=== PATIENT | male | born 1975 | race Caucasian/White ===

== ENCOUNTER 2019-04-09 21:53 | Inpatient (IN) | payer OTHER, SELFPAY ==
--- NOTE | 2019-04-09 19:00 | ECG_ITS ---
Measurements Intervals [place] Rate: 82 P: 42 UT: 154 QRS: 215 QRSD: 186 T: 71 QT: 478 QTc: 560 Interpretive Statements SINUS RHYTHM RIGHT AXIS DEVIATION LEFT BUNDLE BRANCH BLOCK BASELINE ARTIFACT- I, AVR ABNORMAL ECG Electronically Signed On 04-10-2019 9:39:30 HEAVY EQUIPMENT OPERATOR/PAVER by Yassine GATES
[2019-04-09 21:58] VITALS: BP 174/100; PULSE 56; RESP 11; TEMP 37; O2SAT 99
--- NOTE | 2019-04-09 22:02 | ED.OVERDOSE ---
HPI - Overdose General Chief Complaint: Overdose Stated Complaint: SI Time Seen by Provider: 04/09/19 21:58 Source: patient and RN notes reviewed Mode of arrival: ambulatory Limitations: no limitations History of Present Illness HPI Narrative: A 43 y/o male presents to the ED with c/o overdose. Pt states that he took 58 Metoprolol 25mg pills tonight trying to kill himself at 1900. He is normally prescribed Metoprolol 25mg x1 BID. Pt reports nausea, but denies CP, SOB, and ABD pain. He has a PMHx of suicide attempt and has overdosed on Aspirin and impaled himself with an eight inch blade previously. Pt is diagnosed with PTSD and depression. complaint: intentional overdose Onset (ago): hour(s) (3) Time: 19:00 Substance Ingested Metoprolol: Number of Pills Ingested: 58 Time of Ingestion: 19:00 Intent: suicide attempt Associated symptoms: other (Nausea) Related Data Home Medications Medication Instructions Recorded Confirmed Unable to Obtain Home Medications 04/09/19 04/09/19 Allergies Allergy/AdvReac Type Severity Reaction Status Date / Time No Known Allergies Allergy Mild Verified 04/09/19 22:35 Review of Systems Review of Systems: All systems reviewed & are unremarkable except as noted in HPI and below Cardiovascular: Cardiovascular: Denies chest pain Respiratory: Respiratory: Denies dyspnea Gastrointestinal: Gastrointestinal: Denies abdominal pain and Reports nausea PMFSH Past Medical History Medical History Depression (Acute) HTN (hypertension) (Acute) Hyperlipidemia (Acute) PTSD (post-traumatic stress disorder) (Acute) Suicide attempt (Acute) Surgical History Surgical History History of open reduction and internal fixation (ORIF) procedure (Acute) History of tooth extraction (Acute) Social History Social History Smoking status: Never smoker Alcohol intake: never Substance use: never Gender identity (if verbalized by the patient): Male Exam Const: General: cooperative, no acute distress and alert Nutritional Appearance: well nourished Orientation/consciousness: oriented x3 Limitations: no limitations HENMT: Mouth: Yes lip normal and Yes moist mucous membranes Eyes: Conjunctivae: conjunctivae normal Pupils: PERRL Resp: Effort & Inspection: normal respiratory effort Auscultation: clear to auscultation bilaterally Cardio: Rate: bradycardic Rhythm: regular rhythm Peripheral pulses: dorsalis pedis pulses present bilateral 2+ GI: Palpation (GI): Yes soft and No tender Auscultation: normal bowel sounds Skin: General skin exam: normal color Neuro: General: oriented x3 Cognition (Neuro): normal cognition Speech: normal speech Extrem: General: normal to inspection, full ROM and pedal edema bilaterally Psych: Mental Status: mental status grossly normal Affect: normal affect Attitude: cooperative Course Course Emergency Course: Patient presents to the emergency department with report of beta-master overdose 3 hours prior to arrival. Patient with heart rate in the mid 50s on arrival. Patient hypertensive with blood pressures ranging 150s to 170s systolic. Patient did have slight drift downward and his heart rate to the mid 40s. Patient given 1 mg of atropine and 2 mg of glucagon with improvement in heart rate to 70. Patient did not have any significant drop in blood pressure with his downtrending bradycardia. Patient without any other coingestions reported. Drug screen is positive for benzodiazepines and marijuana, other drug levels are unremarkable and not positive. Patient admitted to ICU for close monitoring and care. Patient will require psychiatric evaluation once he is medically stable. Consultations Consultation #1: Disscussed case with Dr. Casillas. He accepts admission. Date:
--- NOTE | 2019-04-09 22:10 | PC.NURSE ---
Spoke with Verito at poison control pt states he took 58 tablets of 25mg metoprolol tartrate tablets at 1900 tonight. Per poison control pt could have hypotension, bradycardia, 1st degree heart block, widened QRS, and prolonged QT. Half life is 3-7 hours. She recommends symptomatic care and will fax over her medical recommendations.
--- NOTE | 2019-04-09 22:12 | ECG_ITS ---
Measurements Intervals [place] Rate: 55 P: -39 TN: 146 QRS: 39 QRSD: 109 T: 36 QT: 411 QTc: 395 Interpretive Statements SINUS BRADYCARDIA BASELINE ARTIFACT- I, II, III, AVR, AVL, AVF BORDERLINE ECG Electronically Signed On 04-10-2019 9:42:42 SERVER PROGRAMMER by Yassine Cantu D.O.
[2019-04-09 22:24] LABS: Glucose Point of Care 124 (65-105)
[2019-04-09 22:28] LABS: Basophils Absolute Auto 0.1 K/mm3 (0.0-0.1); Basophils Percent Auto 1.1 % (0.2-1.2); Eosinophils Absolute Auto 0.1 K/mm3 (0-0.3); Eosinophils Percent Auto 1.3 % (0-4.4); Immature Granulocyte Absolute 0.02 K/mm3 (0.00-0.031); Immature Granulocyte Percent A 0.2 % (0-0.5); Lymphocytes Absolute Auto 4.14 K/mm3 (0.9-3.2); Lymphocytes Percent Auto 49.1 % (18.3-44.2); Mean Corpuscular HGB Conc 34.1 g/dl (32-36); Mean Corpuscular Hemoglobin 30.6 pg (26-34); Mean Corpuscular Volume 89.5 fl (80-100); Monocytes Absolute Auto 0.5 K/mm3 (0.1-0.6); Monocytes Percent Auto 6.2 % (2.6-8.5); Neutrophils Absolute Auto 3.6 K/mm3 (1.3-6.7); Neutrophils Percent Auto 42.1 % (45.5-73.1); Platelet Count Result 249 k/mm3 (150-375); Red Blood Count 4.58 M/mm3 (4.6-6.20); Red Cell Distribution Width 12.4 % (11.5-14.5); White Blood Count 8.4 K/mm3 (4.5-10.0)
[2019-04-09 22:32] VITALS: BP 150/89; PULSE 50; RESP 9; O2SAT 95
--- NOTE | 2019-04-09 22:39 | PC.NURSE ---
pt states he isn't able to urinate at this time, refuses straight cath.
[2019-04-09 22:42] LABS: Alanine Aminotransferase 45 U/L (4-50); Albumin Level 4.4 g/dL (3.5-5.1); Alkaline Phosphatase 75 U/L (38-126); Aspartate Amino Transferase 30 U/L (17-59); Bilirubin,Total 0.4 mg/dL (0.2-1.3); Calcium 8.7 mg/dL (8.4-10.2); Carbon Dioxide 28 mmol/L (22-30); Chloride 101 mmol/L (98-107); Estimated CRCL calculation 157 ml/min; Estimated Glomerular Filt Rate > 60; Glucose 124 mg/dL (75-110); Potassium 3.9 mmol/L (3.4-5.0); Sodium 139 mmol/L (137-145)
[2019-04-09 22:43] LABS: Acetaminophen < 10 ug/mL (10-30); Ethanol < 10 mg/dL (<10); Salicylate < 1.0 mg/dL (2-20)
[2019-04-09] MEDS: GLUCAGON FOR INJ 1 MG VIAL 2 MG IV PUSH (22:58)
[2019-04-09] MEDS: SODIUM CHLORIDE 0.9% IV 1,000 ML 150 ML IV CONT (22:59)
[2019-04-09] MEDS: ATROPINE SULFATE 1 MG/10 ML SYRINGE IV PUSH (23:12)
[2019-04-09] MEDS: ONDANSETRON INJ 4 MG/2 ML VIAL IV PUSH (23:12)
[2019-04-09 23:15] VITALS: BP 157/98; PULSE 67; RESP 12; O2SAT 98
[2019-04-09 23:23] LABS: Add Urine Microscopic? NO; Appearance Urine Clear (Clear); Bilirubin Urine Negative (Negative); Blood Urine Negative (Negative); Color Urine Yellow (Yellow); Glucose Urine UA Negative (Negative); Ketones Urine Negative (Negative); Leukocyte Esterase Ur Negative LEU/UL (Negative); Nitrate Urine Negative (Negative); Protein Urine Negative (Negative); Specific Grav Ur 1.014 (1.001-1.035); Urobilinogen Urine Negative mg/dL (<2.0)
[2019-04-09 23:29] VITALS: BP 167/103; PULSE 61; RESP 16; O2SAT 99
[2019-04-09 23:37] LABS: Amphetamine Screen Urine Negative (Negative); Barbiturate Screen Urine Negative (Negative); Benzodiazepines Screen Urine Positive (Negative); Cannabinoid Screen Urine Positive (Negative); Cocaine Screen Urine Negative (Negative); Methadone Screen Urine Negative (Negative); Opiate Screen Urine Positive (Negative); Phencyclidine Screen Urine Negative (Negative)
[2019-04-10] VITALS (16 sets, daily range): BP systolic 98–176; BP diastolic 61–111; PULSE 42–79; RESP 10–19; TEMP 36.6–37; O2SAT 93–100; BMI 36.1
[2019-04-10 00:06] LABS: Blood Urea Nitrogen < 2 mg/dL (9-20)
--- NOTE | 2019-04-10 00:09 | PC.NURSE ---
poison control to get update on pt.
--- NOTE | 2019-04-10 01:06 | PM.IMHP ---
H&P: HPI History of Present Illness Chief complaint: BETA TATIANNA OVERDOSE SUICIDE ATTEMPT Narrative: This is a 43 year old male with known prior suicide attempts who presented to the hospital [facility] after intentionally overdosing on 58 tablets of metoprolol 25 mg at 7:00 p.m.. The patient states that he did intend to kill himself. The patient is accompanied by his father who tells me that he has had various previous suicide attempts in the past including trying to stab himself. On arrival to the emergency room the patient did feel nauseated and vomited outside before coming in. He denies any chest pain, shortness of breath, fever, headache, abdominal pain, dysuria, hematuria, diarrhea, or rectal bleeding. The patient is known to previously be on psych meds although tells me he has not been taking them recently as they are not covered under his insurance. At this time the patient denies any homicidal ideation. In the ER [facility] the patient was bradycardic and did receive a dose of atropine as well as glucagon IV. On my encounter with the patient [facility] he is resting comfortably in no acute distress. Transmitter Engineer, Dr. Salazar has been consulted. . Review of Systems Review of Systems: All systems reviewed & are unremarkable except as noted in HPI and below PMFSH Past Medical History Medical History Depression (Acute) HTN (hypertension) (Acute) Hyperlipidemia (Acute) PTSD (post-traumatic stress disorder) (Acute) Suicide attempt (Acute) Surgical History Surgical History History of open reduction and internal fixation (ORIF) procedure (Acute) History of tooth extraction (Acute) Social History Social History Smoking status: Never smoker Alcohol intake: never Substance use: never Gender identity (if verbalized by the patient): Male Meds Home Medications and Allergies Home Medications Medication Instructions Recorded Confirmed Type Unable to Obtain Home Medications 04/09/19 04/09/19 History Allergies Allergy/AdvReac Type Severity Reaction Status Date / Time No Known Allergies Allergy Mild Verified 04/09/19 22:35 Vital Signs Vital Signs - 24 hr 04/09/19 21:58 04/09/19 22:32 04/09/19 23:15 Temperature 37.0 C Pulse Rate 56 L 50 L 67 Respiratory Rate 11 L 9 L 12 Blood Pressure 174/100 H 150/89 H 157/98 H Pulse Oximetry 99 95 98 04/09/19 23:29 04/10/19 00:12 Temperature Pulse Rate 61 56 L Respiratory Rate 16 12 Blood Pressure 167/103 H 176/111 H Pulse Oximetry 99 99 Exam Const: General: cooperative, comfortable, no acute distress, alert and awake Nutritional Appearance: obese HENMT: Head: normal to inspection Mouth: Yes oral mucosae normal Eyes: General: appearance normal, both eyes and all related structures Neck: Neck: normal visual inspection, no lymphadenopathy, supple, negative Brudzinski's sign and no JVD Chest: Chest palpation & inspection: normal inspection of the chest Resp: Effort & Inspection: normal respiratory effort Auscultation: clear to auscultation bilaterally Percussion: percussion normal Cardio: Jugular venous distension: no JVD Rate: regular rate Rhythm: regular rhythm Heart sounds: S1 normal and S2 normal GI: Inspection: normal to inspection Palpation (GI): Yes abdominal tenderness, Yes tender in the epigastrum and No ascites Auscultation: normal bowel sounds Neuro: Speech: normal speech Motor exam (neuro): strength 5/5 throughout Sensory Exam: normal sensation; No sensory deficit Extrem: Right lower extremity: normal to inspection Left lower extremity: normal to inspection Psych: Appearance: grossly normal Mental Status: mental status grossly normal Affect: normal affect Attitude: cooperative H&P: Results Labs Labs: Short CBC 04/09/19 Range/Units 22:20 WBC 8.4 (4.5
--- NOTE | 2019-04-10 01:19 | ADMGEN ---
This patient, Vic Browne, was admitted to Intensive Care Unit-7. Patient/family oriented to hospital policies and general routines including ID bracelet, bed and alarms, visiting hours, pain management, procedures, bathroom and other care routines, personal items, smoking policy, room service/diet, and visiting hours. Valuables list has been completed. Information on how to activate the Rapid Response Team has been discussed. Patient/Family are encouraged to report perceived risks to care and to ask questions if they do not understand what they are told or what they should do.
--- NOTE | 2019-04-10 02:27 | ECG_ITS ---
Measurements Intervals [place] Rate: 50 P: 40 MD: 165 QRS: 31 QRSD: 103 T: 21 QT: 468 QTc: 428 Interpretive Statements SINUS BRADYCARDIA BASELINE ARTIFACT- I, II, III, AVR, AVF BORDERLINE ECG Electronically Signed On 04-11-2019 6:59:37 OCCUPATIONAL THERAPY DEPARTMENT CHAIR by Yassine Cantu D.O.
[2019-04-10] MEDS: GLUCAGON FOR INJ 1 MG VIAL IV PUSH (03:03)
[2019-04-10 03:09] LABS: Glucose Point of Care 108 (65-105)
[2019-04-10] MEDS: SODIUM CHLORIDE 0.9% IV 1,000 ML 125 ML IV CONT ×3 (03:09→15:17)
[2019-04-10 05:04] LABS: Basophils Percent Auto 0.5 % (0.2-1.2); Eosinophils Absolute Auto 0.1 K/mm3 (0-0.3); Eosinophils Percent Auto 0.8 % (0-4.4); Hematocrit 36.1 % (42.0-52.0); Hemoglobin 12.5 g/dL (14.0-18.0); Immature Granulocyte Absolute 0.02 K/mm3 (0.00-0.031); Immature Granulocyte Percent A 0.3 % (0-0.5); Lymphocytes Absolute Auto 2.19 K/mm3 (0.9-3.2); Mean Corpuscular HGB Conc 34.6 g/dl (32-36); Mean Corpuscular Hemoglobin 30.4 pg (26-34); Mean Corpuscular Volume 87.8 fl (80-100); Mean Platelet Volume 10.9 fl (7.4-10.4); Monocytes Absolute Auto 0.4 K/mm3 (0.1-0.6); Monocytes Percent Auto 4.9 % (2.6-8.5); Neutrophils Absolute Auto 4.9 K/mm3 (1.3-6.7); Neutrophils Percent Auto 64.5 % (45.5-73.1); Platelet Count Result 166 k/mm3 (150-375); Red Blood Count 4.11 M/mm3 (4.6-6.20); Red Cell Distribution Width 12.2 % (11.5-14.5); White Blood Count 7.6 K/mm3 (4.5-10.0)
--- NOTE | 2019-04-10 05:18 | PC.NURSE ---
Poison control updated to pt current condition and VS. Poison Control recommends that if pt develops symptomatic bradycardia, he can receive a glucagon bolus in the amount of 50-150 mcg/kg, repeating every 5 minutes, for a total of 10 mg.
[2019-04-10 05:23] LABS: Blood Urea Nitrogen 4 mg/dL (9-20); Calcium 8.4 mg/dL (8.4-10.2); Carbon Dioxide 26 mmol/L (22-30); Chloride 105 mmol/L (98-107); Estimated CRCL calculation 182 ml/min; Estimated Glomerular Filt Rate > 60; Glucose 139 mg/dL (75-110); Potassium 3.9 mmol/L (3.4-5.0); Sodium 139 mmol/L (137-145)
--- NOTE | 2019-04-10 06:00 | ECG_ITS ---
Measurements Intervals [place] Rate: 53 P: 47 MO: 156 QRS: 37 QRSD: 104 T: 29 QT: 488 QTc: 460 Interpretive Statements SINUS BRADYCARDIA WITH SINUS ARRHYTHMIA PROLONGED QT INTERVAL ABNORMAL ECG Electronically Signed On 04-10-2019 9:51:22 WAREHOUSE INSULATION WORKER by Yassine Cantu D.O.
[2019-04-10] MEDS: SODIUM CHLORIDE 0.9% IV 1,000 ML 999 ML IV CONT (06:43)
[2019-04-10] MEDS: GLUCAGON FOR INJ 1 MG VIAL 2 MG IM (07:49)
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
[2019-04-10] MEDS: TRAMADOL HCL 50 MG TABLET PO ×2 (14:17→20:07)
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
[2019-04-10] MEDS: KETOROLAC 15 MG/ML VIAL (*BKC) IV PUSH ×2 (15:24→21:56)
[2019-04-10] MEDS: ENOXAPARIN 40 MG/0.4 ML SYRINGE SUB-Q (16:26)
[2019-04-11] VITALS (12 sets, daily range): BP systolic 117–178; BP diastolic 54–90; PULSE 50–78; RESP 11–17; TEMP 36.7–36.9; O2SAT 92–100
[2019-04-11] MEDS: SODIUM CHLORIDE 0.9% IV 1,000 ML 125 ML IV CONT ×2 (00:35→08:46)
[2019-04-11] MEDS: TRAMADOL HCL 50 MG TABLET PO ×4 (01:51→20:05)
[2019-04-11] MEDS: KETOROLAC 15 MG/ML VIAL (*BKC) IV PUSH ×2 (03:14→09:39)
[2019-04-11 06:18] LABS: Basophils Percent Auto 0.4 % (0.2-1.2); Eosinophils Percent Auto 0.8 % (0-4.4); Hematocrit 34.3 % (42.0-52.0); Immature Granulocyte Absolute 0.01 K/mm3 (0.00-0.031); Immature Granulocyte Percent A 0.2 % (0-0.5); Lymphocytes Absolute Auto 2.36 K/mm3 (0.9-3.2); Lymphocytes Percent Auto 47.5 % (18.3-44.2); Mean Corpuscular Hemoglobin 30.8 pg (26-34); Mean Corpuscular Volume 88.2 fl (80-100); Mean Platelet Volume 11.5 fl (7.4-10.4); Monocytes Absolute Auto 0.3 K/mm3 (0.1-0.6); Monocytes Percent Auto 5.2 % (2.6-8.5); Neutrophils Absolute Auto 2.3 K/mm3 (1.3-6.7); Neutrophils Percent Auto 45.9 % (45.5-73.1); Platelet Count Result 143 k/mm3 (150-375); Red Blood Count 3.89 M/mm3 (4.6-6.20); Red Cell Distribution Width 12.2 % (11.5-14.5)
[2019-04-11 06:30] LABS: Alanine Aminotransferase 27 U/L (4-50); Albumin Level 3.2 g/dL (3.5-5.1); Alkaline Phosphatase 61 U/L (38-126); Aspartate Amino Transferase 15 U/L (17-59); Bilirubin,Total 0.4 mg/dL (0.2-1.3); Blood Urea Nitrogen 3 mg/dL (9-20); Calcium 8.1 mg/dL (8.4-10.2); Carbon Dioxide 25 mmol/L (22-30); Chloride 107 mmol/L (98-107); Estimated CRCL calculation 182 ml/min; Estimated Glomerular Filt Rate > 60; Glucose 94 mg/dL (75-110); Potassium 3.4 mmol/L (3.4-5.0); Sodium 137 mmol/L (137-145)
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
--- NOTE | 2019-04-11 12:40 | PC.NURSE ---
POISON CONTROL CALLED JOSE TINSLEY AT 1815 ON 04/10/19. UPDATES WERE GIVEN AND PATIENT'S CASE CLOSED BY POISON CONTROL.
--- NOTE | 2019-04-11 12:42 | PC.NURSE ---
DR. BARON AND DR. LAWSON AGREE THAT PATIENT IS MEDICALLY STABLE AND CLEARED FOR PLACEMENT.
[2019-04-11] MEDS: hydrALAZINE HCL 20 MG/ML VIAL 10 MG IV PUSH (13:38)
[2019-04-11] MEDS: POTASSIUM CHLORIDE 20 MEQ TABLET 40 MEQ PO (16:05)
[2019-04-11] MEDS: LISINOPRIL 20 MG TABLET 40 MG PO (16:06)
[2019-04-11] MEDS: ATORVASTATIN 40 MG TABLET PO (16:07)
--- NOTE | 2019-04-12 11:42 | DS_ITS ---
DATE OF DISCHARGE: 04/11/2019 DATE OF [facility]-[id number] ENCOUNTER: April 11, 2019. DIAGNOSES: 1. Intentional overdose. 2. Depression with posttraumatic stress disorder. 3. Hypertension. HISTORY OF PRESENT ILLNESS: The patient is a 43-year-old male with history of depression and previous suicide attempts, who took reportedly 58 tablets of 25 mg metoprolol intending to harm himself. He was brought to the emergency room and apparently the patient did vomit before coming in. He denied any other symptomatology. With his bradycardia in the emergency room, he received atropine and glucagon. His complete history and physical is enumerated in his admitting history and physical. On admission, blood pressure initially 170/100, pulse was 56. Blood pressure did drop within few hours to low 100s with pulses in the 40s and remained in sinus rhythm. EKG showed sinus bradycardia. His hemoglobin was 14, hematocrit 41, white count 8.4, platelet 249. His sodium 139, potassium 3.9, chloride 101, total CO2 of 28, BUN less than 2, creatinine 0.7, random sugar 124. LFTs normal. TSH normal at 1.5. Urinalysis was clear. Urine drug screen was positive for opiates as well as benzodiazepine and cannabis. HOSPITAL COURSE: 1. Intentional overdose. The patient was monitored, given intermittent glucagon, and on that regimen, his pulse and blood pressure slowly rebounded. By the time of discharge, his pulse was in the 70s, sinus rhythm, blood pressure was 150/86. 2. Depression and posttraumatic stress disorder. Long history of the same. He was seen in consultation by Crisis intervention, who felt he needed inpatient care. He was transferred to [facility] for inpatient psych evaluation and treatment. 3. Hypertension. Initially, his antihypertensives were held including MARCELA inhibitor, diuretic, and beta-master with his blood pressure low and low pulse. On the day of discharge, his pulse and blood pressure rebounded. The lisinopril and hydrochlorothiazide were restarted and beta-master was still held. At the time of discharge, he had blood pressure 156/88 with a pulse of 78. He was afebrile, saturating 99% on room air. PROCEDURES DURING THIS HOSPITALIZATION: Routine. CONSULTANTS: Dr. Salazar, automotive alignment specialist. CONDITION ON DISCHARGE: As stated, blood pressure up to 156/88. He was alert. He was oriented. Lungs were clear. Taking a normal diet. He was discharged to [facility] facility for further treatment and will follow up with primary care after that. ACTIVITY: As tolerated. DIET: Low-sodium. DISCHARGE MEDICATIONS: At the time of discharge, his medications include, 1. Atorvastatin 40 daily. 2. Hydrochlorothiazide 25 daily. 3. Lisinopril 40 daily. 4. PRN tramadol. Metoprolol had been held. Meloxicam had been held. This entire process took 35 minutes to complete. D I MT: Lele
== END 2019-04-11 23:29 | disposition short-term general hospital (02) | DRG 812 ==
LOC: ANHED 23:48 → ANHICU 23:50
PROVIDERS: Internal Medicine; Admitting Provider Family Medicine; Emergency Provider Emergency Medicine; Visit Provider Internal Medicine
DX: T38.3X2A Poisoning by insulin and oral hypoglycemic [antidiabetic] drugs, intentional self-harm, initial encounter (principal); F32.9 Major depressive disorder, single episode, unspecified; F43.10 Post-traumatic stress disorder, unspecified; I10 Essential (primary) hypertension; E78.5 Hyperlipidemia, unspecified; G89.29 Other chronic pain
CPT/HCPCS: 36415; 80048; 80053; 80307; 81003; 83735; 84100; 84443; 85025; 87081; 93005; 96361; 96374; 96375; 99285; A9270; J0360; J0461; J1610; J1650; J1885; J2405; J7030

== ENCOUNTER 2019-08-02 13:35 | Outpatient (CLI) | payer OTHER, SELFPAY ==
[2019-08-02 15:48] LABS: Valproic Acid 50.8 ug/mL (50-120)
== END 2019-08-02 13:36 | disposition home or self-care (01) ==
PROVIDERS: PCP Internal Medicine
DX: F31.9 Bipolar disorder, unspecified (principal)
CPT/HCPCS: 36415; 80164

== ENCOUNTER 2019-10-25 14:04 | Outpatient (CLI) | payer OTHER, SELFPAY ==
[2019-10-25 14:37] LABS: Hemoglobin 12.8 g/dL (14.0-18.0); Mean Corpuscular HGB Conc 32.8 g/dl (32-36); Mean Corpuscular Hemoglobin 30.1 pg (26-34); Mean Corpuscular Volume 91.8 fl (80-100); Mean Platelet Volume 9.9 fl (7.4-10.4); Platelet Count Result 142 k/mm3 (150-375); Red Blood Count 4.25 M/mm3 (4.6-6.20); Red Cell Distribution Width 12.1 % (11.5-14.5); White Blood Count 4.9 K/mm3 (4.5-10.0)
[2019-10-25 14:55] LABS: Albumin Level 4.2 g/dL (3.5-5.1); Alkaline Phosphatase 72 U/L (38-126); Aspartate Amino Transferase 21 U/L (17-59); Bilirubin,Total 0.2 mg/dL (0.2-1.3); Blood Urea Nitrogen 3 mg/dL (9-20); Calcium 8.4 mg/dL (8.4-10.2); Carbon Dioxide 30 mmol/L (22-30); Chloride 96 mmol/L (98-107); Cholesterol 169 mg/dL (0-200); Estimated Glomerular Filt Rate > 60; Glucose 188 mg/dL (75-110); HDL Direct 65 mg/dL; Sodium 136 mmol/L (137-145); Triglycerides 290 mg/dL (<150)
[2019-10-25 14:58] LABS: Alanine Aminotransferase 29 U/L (4-50)
[2019-10-25 15:00] LABS: LDL Cholesterol Direct 77 mg/dL
[2019-10-25 15:19] LABS: Thyroid Stimulating Hormone 0.459 uIU/mL (0.465-4.680)
== END 2019-10-25 14:05 | disposition home or self-care (01) ==
PROVIDERS: PCP Internal Medicine; Visit Provider Internal Medicine
DX: I10 Essential (primary) hypertension (principal); E78.2 Mixed hyperlipidemia; E66.09 Other obesity due to excess calories; E03.9 Hypothyroidism, unspecified
CPT/HCPCS: 36415; 80053; 80061; 84443; 85027

== ENCOUNTER 2019-11-30 16:56 | Outpatient (CLI) | payer OTHER, SELFPAY ==
[2019-11-30 18:15] LABS: Alanine Aminotransferase 43 U/L (4-50); Albumin Level 4.4 g/dL (3.5-5.1); Alkaline Phosphatase 63 U/L (38-126); Aspartate Amino Transferase 37 U/L (17-59); Bilirubin,Total 0.6 mg/dL (0.2-1.3); Blood Urea Nitrogen 8 mg/dL (9-20); Calcium 8.9 mg/dL (8.4-10.2); Carbon Dioxide 28 mmol/L (22-30); Chloride 95 mmol/L (98-107); Estimated Glomerular Filt Rate > 60; Glucose 143 mg/dL (75-110); Potassium 3.5 mmol/L (3.4-5.0); Sodium 132 mmol/L (137-145)
[2019-11-30 18:48] LABS: Hemoglobin A1C 6.7 % (<5.7)
[2019-11-30 19:25] LABS: Free T4 Free Thyroxine 0.77 ng/mL (0.78-2.19)
[2019-11-30 22:24] LABS: Hematocrit 39.7 % (42.0-52.0); Hemoglobin 13.6 g/dL (14.0-18.0); Mean Corpuscular HGB Conc 34.3 g/dl (32-36); Mean Corpuscular Hemoglobin 29.8 pg (26-34); Mean Corpuscular Volume 87.1 fl (80-100); Mean Platelet Volume 11.2 fl (7.4-10.4); Platelet Count Result 137 k/mm3 (150-375); Red Blood Count 4.56 M/mm3 (4.6-6.20); Red Cell Distribution Width 12.3 % (11.5-14.5)
== END 2019-11-30 16:57 | disposition home or self-care (01) ==
PROVIDERS: PCP Internal Medicine; Visit Provider Internal Medicine
DX: E78.9 Disorder of lipoprotein metabolism, unspecified (principal); I10 Essential (primary) hypertension; R73.9 Hyperglycemia, unspecified; E03.9 Hypothyroidism, unspecified
CPT/HCPCS: 36415; 80053; 83036; 84439; 84443; 85027

== ENCOUNTER 2019-12-20 17:29 | Outpatient (CLI) | payer OTHER, SELFPAY ==
[2019-12-20 18:01] LABS: Blood Urea Nitrogen 5 mg/dL (9-20); Carbon Dioxide 29 mmol/L (22-30); Chloride 93 mmol/L (98-107); Estimated Glomerular Filt Rate > 60; Glucose 140 mg/dL (75-110); Sodium 133 mmol/L (137-145)
== END 2019-12-20 17:30 | disposition home or self-care (01) ==
PROVIDERS: PCP Internal Medicine; Visit Provider Internal Medicine
DX: E11.65 Type 2 diabetes mellitus with hyperglycemia (principal); E78.9 Disorder of lipoprotein metabolism, unspecified; F41.9 Anxiety disorder, unspecified
CPT/HCPCS: 36415; 80048

== ENCOUNTER 2020-05-18 13:22 | Outpatient (CLI) | payer OTHER, SELFPAY ==
--- NOTE | ~2020-05-18 | XR_ITS ---
XR ankle LT min 3V DATE: 05/18/2020 14:02 INDICATION: Bilateral foot pain, gait abnormality. Swelling. TECHNIQUE: 3 views COMPARISON: None FINDINGS: Plates and screws are noted along the distal tibia and medial malleolus and distal fibula a nd lateral malleolus. Normal alignment at the tibiotalar joint. No recent fracture or dislocation, periosteal reaction or bone destruction. There is prominent posterior calcaneal enthesopathy. IMPRESSION: Postoperative changes Posterior calcaneal enthesopathy Reviewed, dictated and finalized at location B. OSOPHY AND RELIGION INSTRUCTOR
--- NOTE | ~2020-05-18 | XR_ITS ---
XR ankle RT min 3V DATE: 05/18/2020 14:02 INDICATION: Abnormal gait, bilateral ankle and foot pain TECHNIQUE: 3 views COMPARISON: None FINDINGS: There is a plate and screws along the distal fibular shaft and lateral malleolus. There is a plate and screws along the distal tibial metaphysis and medial malleolus. No recent fracture or dislocation, periosteal reaction or bone destruction. There is osteoarthritic c hange at the tibiotalar joint. There is mild plantar and more prominent posterior calcaneal enthesopathy. IMPRESSION: Postoperative changes Tibiotalar osteoarthritic arthritis Plantar and posterior calcaneal enthesopathy Reviewed, dictated and finalized at location B. TROLYSIST
== END 2020-05-18 13:23 | disposition home or self-care (01) ==
PROVIDERS: PCP Internal Medicine
DX: I70.213 Atherosclerosis of native arteries of extremities with intermittent claudication, bilateral legs (principal); M79.671 Pain in right foot; M79.672 Pain in left foot; R26.89 Other abnormalities of gait and mobility; R60.0 Localized edema; M77.32 Calcaneal spur, left foot; M77.31 Calcaneal spur, right foot; M19.071 Primary osteoarthritis, right ankle and foot
CPT/HCPCS: 73610

== ENCOUNTER 2020-08-29 16:37 | Outpatient (CLI) | payer OTHER, SELFPAY ==
[2020-08-29 17:00] LABS: Hematocrit 44.7 % (42.0-52.0); Hemoglobin 15.2 g/dL (14.0-18.0); Mean Corpuscular Hemoglobin 29.7 pg (26-34); Mean Corpuscular Volume 87.5 fl (80-100); Mean Platelet Volume 9.4 fl (7.4-10.4); Platelet Count Result 192 k/mm3 (150-375); Red Blood Count 5.11 M/mm3 (4.6-6.20); Red Cell Distribution Width 12.5 % (11.5-14.5); White Blood Count 9.8 K/mm3 (4.5-10.0)
[2020-08-29 17:14] LABS: Alanine Aminotransferase 27 U/L (4-50); Albumin Level 4.9 g/dL (3.5-5.1); Alkaline Phosphatase 63 U/L (38-126); Anion Gap 10 mmol/L (8-16); Aspartate Amino Transferase 23 U/L (17-59); Bilirubin,Total 0.7 mg/dL (0.2-1.3); Blood Urea Nitrogen 9 mg/dL (9-20); Calcium 9.1 mg/dL (8.4-10.2); Carbon Dioxide 29 mmol/L (22-30); Chloride 97 mmol/L (98-107); Cholesterol 244 mg/dL (0-200); Estimated Glomerular Filt Rate > 60; Glucose 116 mg/dL (75-110); HDL Direct 50 mg/dL; Potassium 3.3 mmol/L (3.4-5.0); Sodium 136 mmol/L (137-145); Triglycerides 158 mg/dL (<150)
[2020-08-29 17:25] LABS: LDL Cholesterol Direct 144 mg/dL
== END 2020-08-29 16:38 | disposition home or self-care (01) ==
LOC: ANHLAB 16:39
PROVIDERS: PCP Internal Medicine; Visit Provider Internal Medicine
DX: R73.9 Hyperglycemia, unspecified (principal); F41.9 Anxiety disorder, unspecified; D69.6 Thrombocytopenia, unspecified
CPT/HCPCS: 36415; 80053; 80061; 83036; 85027

== ENCOUNTER 2021-07-15 16:42 | Outpatient (CLI) | payer OTHER, SELFPAY ==
[2021-07-15 17:14] LABS: Basophils Percent Auto 0.2 % (0.2-1.2); Eosinophils Absolute Auto 0.1 K/mm3 (0-0.3); Eosinophils Percent Auto 1.4 % (0-4.4); Hematocrit 41.6 % (42.0-52.0); Hemoglobin 14.3 g/dL (14.0-18.0); Immature Granulocyte Absolute 0.02 K/mm3 (0.00-0.031); Immature Granulocyte Percent A 0.2 % (0-0.5); Lymphocytes Absolute Auto 2.81 K/mm3 (0.9-3.2); Lymphocytes Percent Auto 33.3 % (18.3-44.2); Mean Corpuscular HGB Conc 34.4 g/dl (32-36); Mean Corpuscular Hemoglobin 30.1 pg (26-34); Mean Corpuscular Volume 87.6 fl (80-100); Mean Platelet Volume 9.7 fl (7.4-10.4); Monocytes Absolute Auto 0.8 K/mm3 (0.1-0.6); Monocytes Percent Auto 9.4 % (2.6-8.5); Neutrophils Absolute Auto 4.7 K/mm3 (1.3-6.7); Neutrophils Percent Auto 55.5 % (45.5-73.1); Platelet Count Result 165 k/mm3 (150-375); Red Blood Count 4.75 M/mm3 (4.6-6.20); Red Cell Distribution Width 12.9 % (11.5-14.5); White Blood Count 8.4 K/mm3 (4.5-10.0)
[2021-07-15 17:26] LABS: Alanine Aminotransferase 29 U/L (4-50); Albumin Level 4.7 g/dL (3.5-5.1); Alkaline Phosphatase 59 U/L (38-126); Anion Gap 12 mmol/L (8-16); Aspartate Amino Transferase 22 U/L (17-59); Bilirubin,Total 0.9 mg/dL (0.2-1.3); Blood Urea Nitrogen 12 mg/dL (9-20); Calcium 9.2 mg/dL (8.4-10.2); Carbon Dioxide 26 mmol/L (22-30); Chloride 95 mmol/L (98-107); Cholesterol 118 mg/dL (0-200); Estimated Glomerular Filt Rate > 60; Glucose 161 mg/dL (65-110); HDL Direct 48 mg/dL; Potassium 3.6 mmol/L (3.4-5.0); Sodium 133 mmol/L (137-145); Triglycerides 109 mg/dL (<150)
[2021-07-15 17:36] LABS: Hemoglobin A1C 6.6 % (<5.7); LDL Cholesterol Direct 45 mg/dL
== END 2021-07-15 16:43 | disposition home or self-care (01) ==
LOC: ANHLAB 16:46
PROVIDERS: PCP Internal Medicine; Visit Provider Internal Medicine
DX: E11.65 Type 2 diabetes mellitus with hyperglycemia (principal); I10 Essential (primary) hypertension; F41.9 Anxiety disorder, unspecified; E78.9 Disorder of lipoprotein metabolism, unspecified
CPT/HCPCS: 36415; 80053; 80061; 83036; 85025

== ENCOUNTER 2025-01-29 14:11 | Emergency (ER) | payer OTHER, SELFPAY ==
--- OUTSIDE RECORDS SUMMARY | 2024-12-28 09:20 | XMS_ITS ---
Author Organization [facility] Address [address] [place] [address] Care Team Providers Care Under Cutting Machine Operator Name Role Phone Christiano Escamilla Primary Care Provider REASON FOR VISIT r/s from 12/07/24- & 12/21/24 4 week f u Social History Sex Assigned At : Social History Observation Description Sex Assigned At Male Encounters Encounter Location Date Provider Diagnosis [address] [place] [address] 12/28/2024 Christiano Escamilla Plan Of Treatment No Information Progress Notes * Vic BROWNEDOB:1975 ( 49 yo M)Acc No.[id number]:12/28/2024 UNLOCKED PROGRESS NOTE Patient: Vic ANDREWS Provider: Laura Escamilla DNP, PMHNP-BC :1975 A ge:49 Y S ex:Male Date:12/28/2024 Phone: Address:[address] [place] [address] [id number] Subjective: * Chief Complaints: * 1 . R/s from 12/07/24- & 12/21/24 4 week f u. * Medical History: Objective: * Vitals: Assessment: Plan: * Treatment: * * Electronic signature of Dee Escamilla , [employer], [id number] on 01/29/2025 at 02:12 PM CDT Sign off status: Pending * Provider: Laura Escamilla DNP, PMHNP-BC Date: 0 12/28/2024 Generated for Printi ng/Faxing/eTransmitting on: 0 01/29/2025 02:12 PM CDT
--- OUTSIDE RECORDS SUMMARY | 2025-01-25 13:45 | XMS_ITS ---
Author Organization [facility] Address [address] [place] [address] Care Team Providers Care Seismograph Operator Name Role Phone Christiano Escamilla Primary Care Provider [phone] REASON FOR VISIT Critical Blood sugar Social History Sex Assigned At : Social History Observation Description Sex Assigned At Male Encounters Encounter Location Date Provider Diagnosis [facility] [place] [address] 01/25/2025 Christiano Escamilla Plan Of Treatment No Information Progress Notes * HOLLIE VicDOB:1975 ( 49 yo M)Acc No.[id number]:01/25/2025 UNLOCKED PROGRESS NOTE Patient: Vic ANDREWS :1975 A ge:49 Y S ex:Male Phone: Address:[address] [place] [address] [place], [address] Subjective: * Chief Complaints: * C ritical Blood sugar * HPI: C ontinuity: Patient contacted after-hours nursing line. Urgency of Call E mergency Condition. O utcome of Call?Sent to ED based on triage protocols. ED name:[facility]. Santiago ollow-up plans P t sent to ED- nursing staff to confirm arrival within 4 hours, and ER/Hospital follow-up tracking has been initiated.. Siva navarrete assigned to complete follow up plans: Iris Casillas. * Medical History: * Surgical History: * Hospitalization/Major Diagno stic Procedure: * Medications: Objective: * Vitals: * Physical Examination: Assessment: Plan: * Treatment: * Procedure Codes: C HS06 After Hours [id number] OFF/OP EST SEPTEMBER X REQ PHY/QHP * * Date: History and Physical Notes * HPI (History of Present Illness) Category Sub-Category Detail Notes Category Not es Continuity Urgency of Call Emergency Condition Outcome of Call Sent to ED based on triage protocols. ED name:[facility] Follow-up plans Pt sent to ED- [facility] staff to confirm arrival within 4 hours, and ER/Hospital follow-up tracking has been initiated. Nurse assigned to complete vale sarmiento up plans: Iris Casillas
--- OUTSIDE RECORDS SUMMARY | 2025-01-29 14:13 | XMS_ITS | Clinical Summary ---
Author Organization [facility] Address [address] [place] [address] Care Team Providers Care Gluing Machine Operator Automatic Name Role Phone Jose Luis Ryan MD Primary Care Provider [phone] Social History Tobacco Use Types Packs/Day Years Used Date Smoking Tobacco: Never Assessed Personal Safety Answer Date Recorded Getting School Help Needed Not on file 08/15 Sex and Gender Information Value Date Recorded Sex Assigned at Not on file Legal Sex Male 3:30 PM CDT Gender Identity Not on file Sexual Orientation Not on file Plan of Treatment Health Maintenance Due Date Last Done Comments Colon Cancer Screening-Colonoscopy 1975 Depression Screening 1975 Hepatitis C Screening 1975 DTaP/Tdap/Td Vaccine (1 - Tdap) 1987 Hepatitis B Screening 1994 Regular Well Visit/Exam 18-64 1994 Influenza Vaccine (#1) 2025 , 04/04/2019, 08/11/2018 Pneumococcal vaccine <65 Aged Out No longer eligible based on patient's age to complete this topic [place] [place] [address] [facility] Care Teams Gluing Machine Operator Automatic Relationship Specialty Start Date End Date Jose Luis Ryan MD PCP - General 08/17/18
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
--- OUTSIDE RECORDS SUMMARY | 2025-01-29 14:13 | XMS_ITS | Clinical Summary ---
Author Organization [facility] Address [facility] [place] [address] Care Team Providers Care Extract Operator Name Role Phone Patrick Le DO Primary Care Provider Allergies No known active allergies Social History Tobacco Use Types Packs/Day Years Used Date Smoking Tobacco: Never Assessed Sex and Gender Information Value Date Recorded Sex Assigned at Not on file Legal Sex Male 5:35 PM CDT Gender Identity Not on file Sexual Orientation Not on file Last Filed Vital Signs Vital Sign Reading Time Taken Comments Blood Pressure 185/118 06/06/2018 6:06 PM ARTIFICIAL [employer]ASS [employer] Pulse 85 06/06/2018 6:06 PM [employer] Temperature 36.7 C (98 F) 06/06/2018 6:06 PM ART[employer]IAL [employer]ASS EYE [employer]KER Respiratory Rate 18 06/06/2018 6:06 PM [employer]IFIC[employer] E[employer]KER Oxygen Saturation 98% 06/06/2018 6:06 PM ARTIFICIAL [employer]ASS EYE [employer]KER Inhaled Oxygen Concentration - - Weight 128.4 kg (283 lb) 06/06/2018 6:06 PM ARTIFICIAL GLASS EYE MAKER Height 182.9 cm (6') 06/06/2018 6:06 PM ARTIFICIAL [employer]ASS E[employer]KER Body Mass Index 38.38 06/06/2018 6:06 PM ARTIFICIAL [employer]ASS EYE [employer]KER Plan of Treatment Health Maintenance Due Date Last Done Comments Colorectal Cancer Screening Colonoscopy (10 Years) 1976 Annual Physical 1979 Hepatitis C 1994 DTaP, Tdap and Td Vaccines ( 1 - Tdap) 1995 Hepatitis B Vaccines (1 of 3 - 19+ 3-dose series) 1995 COVID-19 Vaccine (2023-2 5 season) 2024 Meningococcal B Vaccine Aged Out No l onger eligible based on patient's age to complete this topic Meningococcal Vaccine Aged Out No gracie rosa eligible based on patient's age to complete this topic Pneumococcal Vaccine: Pediat rics (0 to 5 Years) and At-Risk Patients (6 to 49 Years) Aged Out No longer eligible b ased on patient's age to complete this topic RSV Immunizations Under 20 Months Aged Out No longer eligible based on patient's age to complete this topic Insurance [address] [place] [address] [id number] Advance Directives Documents on File Type Date Recorded 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
--- OUTSIDE RECORDS SUMMARY | 2025-01-29 14:13 | XMS_ITS | Encounter Summary ---
Author Organization [facility] Address [address] [place] [address] Care Team Providers Care Outreach Coordinator Name Role Phone Patrick Le DO Primary Care Provider [phone] Encounter Details Date Type Department Care Team (Latest Contact Info) Description 04/06/2018 Abstract [facility] , Mariaa Alvarez MD Social History Tobacco Use Types Packs/Day Years Used Date Smoking Tobacco: Never Assessed Sex and Gender Information Value Date Recorded Sex Assigned at Not on file Legal Sex Male 5:35 PM CDT Gender Identity Not on file Sexual Orientation Not on file documented as of this encounter Plan of Treatment Not on file documented as of this encounter Visit Diagnoses Not on filedocumented in this encounter Care Teams Outreach Coordinator Relationship Specialty Start Date End Date Patrick Le DO PCP - General 01/16/14 documented as of this encounter
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
[2025-01-29 14:34] VITALS: BP 142/81; PULSE 61; RESP 18; TEMP 36.7; O2SAT 97
[2025-01-29 17:02] VITALS: BP 148/88; PULSE 62; RESP 20; TEMP 37.3; O2SAT 97
--- NOTE | 2025-01-29 17:54 | PC.NURSE ---
Pt left ED in NAD
== END 2025-01-29 18:12 | disposition left against medical advice (07) ==
PROVIDERS: Emergency Provider Emergency Medicine; PCP Internal Medicine
DX: R73.9 Hyperglycemia, unspecified (principal)
CPT/HCPCS: 82948; 99199